=== PATIENT | male | born 1970 | race African-American/Black ===

== ENCOUNTER 2021-04-30 02:08 | Emergency (ER) | payer SELFPAY ==
[~2021-04-30] VITALS: Ht 190.5 cm; Wt 113.6 kg
[2021-04-30 02:12] VITALS: BP 158/93; Ht 190.5 cm; Wt 113.6 kg
[2021-04-30] MEDS ORDERED: DICLOFENAC SODI50 MG PO (03:51)
== END 2021-04-30 04:01 | disposition home or self-care (01) ==
LOC: D.ER 02:08
DX: M25.552 Pain in left hip (principal)